=== PATIENT | male | born 1990 | race African-American/Black ===

== ENCOUNTER 2024-02-16 07:55 | Emergency (ER) | payer SELFPAY ==
[~2024-02-16] VITALS: Ht 175.3 cm; Wt 77.0 kg
[2024-02-16 08:00] VITALS: BP 158/97; PULSE 104; RESP 16; TEMP 98; O2SAT 98
== END 2024-02-16 08:55 | disposition home or self-care (01) ==
LOC: ER 08:23
DX: F10.10 Alcohol abuse, uncomplicated (principal); Y90.9 Presence of alcohol in blood, level not specified
CPT/HCPCS: 99283